=== PATIENT | female | born 1960 | race Caucasian/White ===

== ENCOUNTER 2017-09-23 14:39 | Emergency (ER) | payer OTHER, BC ==
[~2017-09-23] VITALS: Ht 157.5 cm; Wt 62.7 kg
[2017-09-23 14:47] VITALS: BP 131/75; PULSE 70; RESP 18; TEMP 97.9; O2SAT 100
[2017-09-23 14:54] VITALS: BP 131/75; PULSE 67; RESP 18; TEMP 97.9; O2SAT 98
[2017-09-23] MEDS ORDERED: SERT-129 PO (14:54)
[2017-09-23] MEDS ORDERED: ACETAMINOPHEN 1000 MG/100 ML 100 ML IV ONE (15:00)
[2017-09-23] MEDS ORDERED: LEVO50TA4 PO (15:01)
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
== END 2017-09-23 17:55 | disposition home or self-care (01) ==
LOC: NEPC 14:39
DX: S50.311A Abrasion of right elbow, initial encounter (principal); S80.212A Abrasion, left knee, initial encounter; S80.211A Abrasion, right knee, initial encounter; S70.312A Abrasion, left thigh, initial encounter; S00.81XA Abrasion of other part of head, initial encounter; E78.5 Hyperlipidemia, unspecified; V29.59XA Motorcycle passenger injured in collision with other motor vehicles in traffic accident, initial encounter; Y92.410 Unspecified street and highway as the place of occurrence of the external cause
CPT/HCPCS: 70450; 71045; 72170; 73080; 73564; 73630; 96374; 99284; J0131